=== PATIENT | male | born 1965 | race Caucasian/White ===

== ENCOUNTER 2023-12-30 17:28 | Emergency (ER) | payer OTHER ==
[2023-12-30] MEDS ORDERED: ONDANSETRON 4 MG/2 ML VIAL ONE (18:12)
[2023-12-30] MEDS ORDERED: MORPHINE 4 MG/ML SYR ONE (18:12)
[2023-12-30] MEDS ORDERED: FAMOTIDINE 20 MG/2 ML VIAL IV ONE (18:13)
[2023-12-30 18:41] LABS: PT Prothrombin Time 11.2 SECONDS (9.5-12.5); Protime INR 1.02
[2023-12-30 18:44] LABS: Absolute Eosinophils 0.1 K/uL (0-0.5); Absolute Lymphocytes (CBC) 1.5 K/uL (0.7-4.9); Absolute Monocytes 0.4 K/uL (0.1-1.3); Basophils % 0.7 % (0-1.3); Hematocrit 46.3 % (39.6-49.0); Hemoglobin 15.3 g/dL (13.6-17.9); Lymphocytes % 21.3 % (15.3-44.8); MCH 29.1 pg (27.0-35.0); MCHC 32.9 g/dL (32.0-36.0); MCV 88.5 fL (80-100); MPV 7.3 fL (7.6-11.3); Monocytes % 5.4 % (3.3-12.3); Neutrophils % 71.6 % (41.7-73.7); Nucleated Red Blood Cells % 0.1 % (0-0); Platelets 249 thou/uL (152-406); RBC Red Blood Cell Count 5.24 M/uL (4.33-5.43); Red Cell Distribution Width 16.2 % (12.1-15.2)
[2023-12-30 18:56] LABS: Albumin 3.1 g/dL (3.4-5.0); Albumin/Globulin Ratio 0.8 (1.1-1.8); Alkaline Phosphatase 60 U/L (45-117); Anion Gap 7.9 mEq/L (5.0-15.0); BUN Blood Urea Nitrogen 12 mg/dL (7-18); Bicarbonate 28 mEq/L (21-32); Bilirubin Total 0.4 mg/dL (0.2-1.0); Globulin 3.7 g/dL (2.3-3.5); Glomerular Filtration Rate 71 ml/min (=/>90); Glucose Level 132 mg/dL (74-106); Lipase 15 U/L (13-75); Magnesium 1.7 mg/dL (1.6-2.4); Potassium 3.9 mEq/L (3.5-5.1); Protein, Total 6.8 g/dL (6.4-8.2); Sodium Level 137 mEq/L (136-145); Troponin High Sensitivity 11.8 pg/mL (<58.9)
[2023-12-30 19:07] LABS: AST/SGOT < 10 U/L (15-37)
[2023-12-30 19:08] LABS: ALT/SGPT < 14 U/L (16-61); Bilirubin Direct < 0.2 mg/dL (0-0.2); Bilirubin Indirect, Calculated 0.2 mg/dL (0.2-0.8)
--- NOTE | 2023-12-30 19:36 | RAD REPORT ---
EXAM DESCRIPTION: RADChest Single View12/30/2023 6:20 pm CLINICAL HISTORY: vomiting COMPARISON: Abdomen Pelvis W Contrast dated 12/30/2023 TECHNIQUE: Portable AP view of the chest. FINDINGS: The lungs are clear apart from left basilar scarring/postoperative changes. Elevation of t he left hemidiaphragm is noted. No pneumothorax or effusion. The cardiomediastinal contours are unre markable, with sequelae of CABG noted. IMPRESSION: No acute cardiopulmonary process.
--- NOTE | 2023-12-30 20:09 | RAD REPORT ---
EXAM DESCRIPTION: CT - Abdomen Pelvis W Contrast - 12/30/2023 7:21 pm CLINICAL HISTORY: ABD PAIN COMPARISON: No comparisons TECHNIQUE: Thin cut axial CT imaging of the abdomen and pelvis was performed following intravenous a dministration of 100 mL Isovue 300. Multiplanar reformats were generated and reviewed. All CT scans are performed using dose optimization technique as appropriate and may include automated exposure control or mA/KV adjustment according to patient size. FINDINGS: No suspicious findings in the lung bases apart from left platelike atelectasis or scarring . Epicardial wires. The liver, spleen, adrenal and pancreas show no suspicious findings. Gallbladder and biliary tree are also without suspicious finding. Symmetric renal function is seen with no hydronephrosis or suspicious renal mass. No dilated bowel loops or bowel wall thickening. No free air, free fluid or inflammatory stranding. N o hernia, mass or bulky lymphadenopathy. The urinary bladder is without significant finding. Mild pro statomegaly. No suspicious bony findings. IMPRESSION: No acute intra-abdominal process. Incidental findings as above.
--- NOTE | 2023-12-30 21:33 | ER ---
Nurse's Notes [facility] Name: Roverto Estrada Age: 58 yrs Sex: Male : 1965 Arrival Date: 12/30/2023 Time: 17:28 Bed 14 Private MD: Diagnosis: Abdominal pain, unspecified;Nausea with vomiting, unspecified Presentation: 12/29 17:35 Chief complaint: Patient states: vomiting and abdominal pain x1 week. Coronavirus as6 screen: At this time, the client does not indicate any symptoms associated with coronavirus-19. Ebola Screen: No symptoms or risks identified at this time. Initial Sepsis Screen: Does the patient meet any 2 criteria? No. Patient's initial sepsis screen is negative. Does the patient have a suspected source of infection? No. Patient's initial sepsis screen is negative. Risk Assessment: Do you want to hurt yourself or someone else? Patient reports no desire to harm self or others. Onset of symptoms was December 23, 2023. 17:35 Acuity: NAKIA 3 as6 17:35 Method Of Arrival: Wheelchair as6 Triage Assessment: 17:36 General: Appears in no apparent distress. Behavior is calm, cooperative. Pain: as6 Complains of pain in abdomen. GI: Reports nausea, vomiting. Historical: - Allergies: 17:34 No Known Allergies; as6 - PMHx: 17:34 Diabetes mellitus; as6 - PSHx: 17:34 left AKA; hand; Stented artery; as6 - Immunization history:: Adult Immunizations up to date. - Infectious Disease History:: Denies. - Social history:: Smoking status: Patient reports the use of cigarette tobacco products, smokes one pack cigarettes per day. Screenin:38 [facility] ED Fall Risk Assessment (Adult) History of falling in the last 3 months, nj1 including since admission No falls in past 3 months (0 pts) Confusion or Disorientation No (0 pts) Intoxicated or Sedated No (0 pts) Impaired Gait Yes (1 pt) Mobility Assist Device Used Yes (1 pt) Altered Elimination No (0 pt) Score/Fall Risk Level 0 - 2 = Low Risk Oriented to surroundings, Maintained a safe environment, Hourly rounding (assess needs \T\ fall precautionary measures) done. Abuse screen: Denies threats or abuse. Denies injuries from another. Nutritional screening: No deficits noted. Tuberculosis screening: No symptoms or risk factors identified. Assessment: 18:20 General: Appears in no apparent distress. comfortable, Behavior is calm, cooperative, nj1 appropriate for age. 18:20 Pain: Complains of pain in abdomen Pain currently is 8 out of 10 on a pain scale. nj1 Neuro: Level of Consciousness is awake, alert, obeys commands, Oriented to person, place, time, situation. Cardiovascular: Patient's skin is warm and dry. Respiratory: Airway is patent Respiratory effort is even, unlabored. GI: Reports upper abdominal pain, nausea, vomiting. 19:18 General: Appears comfortable, Behavior is calm, cooperative, appropriate for age. Pain: ha1 Complains of pain in abdomen Pain currently is 6 out of 10 on a pain scale. Quality of pain is described as aching, Pain began over a week. Neuro: Level of Consciousness is awake, alert, obeys commands, Oriented to person, place, time, situation. Cardiovascular: Capillary refill < 3 seconds Patient's skin is warm and dry. Rhythm is sinus rhythm. Respiratory: Airway is patent Respiratory effort is even, unlabored, Respiratory pattern is regular, symmetrical. GI: Reports lower abdominal pain, upper abdominal pain, diarrhea, nausea, vomiting. Derm: Skin is pink, warm \T\ dry. Musculoskeletal: Amputation of left leg. 20:20 Reassessment: Patient and/or family updated on plan of care and expected duration. Pain ha1 level reassessed. Patient is alert, oriented x 3, equal unlabored respirations, skin warm/dry/pink. Patient states symptoms have improved. 21:20 Reassessment: Patient and/or family updated on plan of care and expected duration. Pain ha1 level reassessed. Patient is alert, oriented x 3, equal unlabored respirations, skin warm/dry/pink. Vital Signs: 17:33 BP 140 / 83; Pulse 88; Resp 18 S; Temp 97.8(TE); Pulse Ox 100% on R/A; Weight 72.57 kg as6 (R); Height 5 ft. 8 in. (R); Pain 8/10; 18:22 BP 153 / 87; Pulse 83; Resp 18; Pulse Ox 99% on R/A; Pain 8/10; nj1 19:25 BP 153 / 87; Pulse 83; Resp 16; Pulse Ox 99% on R/A; ha1 20:20 BP 147 / 83; Pulse 81; Resp 17 S; Pulse Ox 96% on R/A; ha1 21:20 BP 150 / 88; Pulse 82; Resp 17 S; Pulse Ox 96% on R/A; ha1 17:33 Body Mass Index 24.33 (72.57 kg, 172.72 cm) as6 17:33 Pain Scale: Adult as6 18:22 Pain Scale: Adult il1 ED Course: 17:31 Patient arrived in ED. im 17:35 Arm band placed on. as6 17:36 Triage completed. as6 17:38 Elliott Moulton PA is PHCP. cp 17:38 Gene Saenz DO is Attending Physician. cp 18:00 Ana Bruno, MARCIO is Primary Nurse. nj1 18:11 Radiology exam delayed due to IV insertion attempt and/or patient not having nj appropriate IV at this time. 18:11 Radiology exam delayed due to lab results not completed at this time. (BUN/Creatinine). nj 18:20 Inserted saline lock: 20 gauge in right antecubital area, using aseptic technique. nj1 Blood collected. 18:22 XRAY Chest (1 view) In Process Unspecified. EDMS 18:39 Patient has correct armband on for positive identification. Bed in low position. Call nj light in reach. Provided Education on: call light, fall precautions. Door closed. Lights dimmed. 19:00 Report given to Kristi BUCKLEY. nj1 19:22 CT Abd/Pelvis - IV Contrast Only In Process Unspecified. EDMS 19:52 Primary Nurse role handed off by Ana Bruno RN 1 19:52 Kristi Dolan RN is Primary Nurse. ha1 21:57 No provider procedures requiring assistance completed. IV discontinued, intact, ha1 bleeding controlled, No redness/swelling at site. Pressure dressing applied. Administered Medications: 18:20 Drug: Ondansetron IVP 4 mg IVP once; over 2 minutes Route: IVP; Site: right antecubital;nj1 19:00 Follow up: Response: No adverse reaction; Marked relief of symptoms ha1 18:22 Drug: Famotidine IVP 20 mg IVP once; dilute with 10 mL 0.9% NaCl; give over 2 minutes nj1 Route: IVP; Site: right antecubital; 19:00 Follow up: Response: No adverse reaction; Marked relief of symptoms ha1 18:24 Drug: morphine IVP or IV 4 mg IVP once over 4 mins Route: IVP; Infused Over: 4 mins; nj1 Site: right antecubital; 19:01 Follow up: Response: No adverse reaction; Pain is decreased; RASS: Alert and Calm (0) ha1 Medication: 19:22 VIS not applicable for this client. ha1 Outcome: 21:33 Discharge ordered by . cp 21:59 Discharged to home via wheelchair, ha1 21:59 Condition: stable 21:59 Discharge instructions given to patient, Instructed on discharge instructions, follow up and referral plans. medication usage, Demonstrated understanding of instructions, follow-up care, medications, Prescriptions given X 2, 21:59 Patient left the ED. ha1 Signatures: Dispatcher [employer] EDMS Elliott Moulton PA PA cp Jordan, Nathan nj Slawson, Ashby, RN RN as6 Kristi Dolan RN RN 1 Ana Bruno RN RN nj1 Lanny Monroe Corrections: (The following items were deleted from the chart) 19:25 19:00 Response: No adverse reaction; Pain is decreased; RASS: Alert and Calm (0) ha1 ha1
--- NOTE | 2023-12-30 21:33 | EDPHYS ---
Physician Documentation [facility] Name: Roverto Estrada Age: 58 yrs Sex: Male : 1965 Arrival Date: 12/30/2023 Time: 17:28 Bed 14 Private MD: ED Physician Gene Saenz HPI: 12/29 18:00 This 58 yrs old Male presents to ER via Wheelchair with complaints of Vomiting. cp 18:00 The patient presents to the emergency department with vomiting, that is intermittent, cp described as bilious, abdominal pain, and does not radiate. Onset: The symptoms/episode began/occurred 1 week(s) ago. Possible causes: unknown. Associated signs and symptoms: Pertinent positives: anorexia, nausea, vomiting, Pertinent negatives: diarrhea, fever. Severity of symptoms: in the emergency department the symptoms are unchanged despite home interventions. Historical: - Allergies: 17:34 No Known Allergies; as6 - PMHx: 17:34 Diabetes mellitus; as6 - PSHx: 17:34 left AKA; hand; Stented artery; as6 - Immunization history:: Adult Immunizations up to date. - Infectious Disease History:: Denies. - Social history:: Smoking status: Patient reports the use of cigarette tobacco products, smokes one pack cigarettes per day. ROS: 18:05 Constitutional: Positive for poor PO intake, Negative for fever, cp 18:05 Respiratory: Negative for cough, shortness of breath, wheezing, cp 18:05 Abdomen/GI: Positive for abdominal pain, vomiting, anorexia, Negative for diarrhea, constipation, hematemesis, black/tarry stool, rectal bleeding, 18:05 Eyes: Negative for injury, pain, redness, and discharge, cp 18:05 Cardiovascular: Negative for chest pain, palpitations, 18:05 Neuro: Negative for altered mental status, dizziness, headache, weakness, 18:05 All other systems are negative, cp Exam: 18:10 Constitutional: The patient appears in no acute distress, alert, awake, cp non-diaphoretic, non-toxic, well developed, well nourished, 18:10 Head/Face: Normocephalic, atraumatic. cp 18:10 Eyes: Periorbital structures: appear normal, Conjunctiva: normal, no exudate, no injection, Sclera: no appreciated abnormality, Lids and lashes: appear normal, bilaterally, 18:10 ENT: External ear(s): are unremarkable, Nose: is normal, Mouth: Lips: moist, Oral mucosa: pink and intact, moist, Posterior pharynx: is normal, airway is patent, no erythema, no exudate, 18:10 Neck: ROM/movement: is normal, is supple, without pain, no range of motions limitations, 18:10 Chest/axilla: Inspection: normal, 18:10 Cardiovascular: Rate: normal, Rhythm: regular, 18:10 Respiratory: the patient does not display signs of respiratory distress, Respirations: normal, no use of accessory muscles, no retractions, labored breathing, is not present, Breath sounds: are clear throughout, no decreased breath sounds, no stridor, no wheezing, 18:10 Abdomen/GI: Inspection: abdomen appears normal, Bowel sounds: active, all quadrants, Palpation: soft, in all quadrants, mild abdominal tenderness, mid abdomen bilaterally, rebound tenderness, is not appreciated, involuntary guarding, is not appreciated, 18:10 Back: pain, is absent, ROM is normal, 18:10 Musculoskeletal/extremity: Extremities: noted in the left leg: above the knee amputation, 18:10 Neuro: Orientation: to person, place \T\ time. Mentation: is normal, Motor: moves all fours, no focal deficits, Sensation: is normal, 19:15 ECG was reviewed by the Attending Physician. cp Vital Signs: 17:33 BP 140 / 83; Pulse 88; Resp 18 S; Temp 97.8(TE); Pulse Ox 100% on R/A; Weight 72.57 kg as6 (R); Height 5 ft. 8 in. (R); Pain 8/10; 18:22 BP 153 / 87; Pulse 83; Resp 18; Pulse Ox 99% on R/A; Pain 8/10; nj1 19:25 BP 153 / 87; Pulse 83; Resp 16; Pulse Ox 99% on R/A; ha1 20:20 BP 147 / 83; Pulse 81; Resp 17 S; Pulse Ox 96% on R/A; ha1 21:20 BP 150 / 88; Pulse 82; Resp 17 S; Pulse Ox 96% on R/A; ha1 17:33 Body Mass Index 24.33 (72.57 kg, 172.72 cm) as6 17:33 Pain Scale: Adult as6 18:22 Pain Scale: Adult nj1 MDM: 17:39 Patient medically screened. 18:00 Differential diagnosis: gastritis, cholecystitis, pancreatitis, appendicitis, cp diverticulitis, viral gastroenteritis, gastroenteritis. 21:32 Data reviewed: vital signs, nurses notes, lab test result(s), EKG, radiologic studies, cp CT scan, and as a result, I will discharge patient. 21:32 I considered the following discharge prescriptions or medication management in the emergency department Medications were administered in the Emergency Department. See MAR. Care significantly affected by the following chronic conditions: Diabetes. Counseling: I had a detailed discussion with the patient and/or guardian regarding the historical points, exam findings, and any diagnostic results supporting the discharge/admit diagnosis, lab results, radiology results, to return to the emergency department if symptoms worsen or persist or if there are any questions or concerns that arise at home. Special discussion: Based on the patient's Hx, exam, and Dx evaluation, there is no indication for emergent surgery or inpatient Tx. It is understood by the patient/guardian that if the Sx's persist or worsen they need to return immediately for re-evaluation. 12/29 17:49 Order name: Basic Metabolic Panel; Complete Time: 19:12 /12 19:12 Interpretation: Normal except: GLUC 132; GFR 71. 12/29 17:49 Order name: CBC with Diff; Complete Time: 19:12 /12 19:12 Interpretation: Normal except: RDW 16.2; MPV 7.3. / 17:49 Order name: LFT's; Complete Time: 19:12 12 17:49 Order name: Magnesium; Complete Time: 19:12 cp / 17:49 Order name: PT-INR; Complete Time: 19:12 cp /12 17:49 Order name: Troponin HS; Complete Time: 19:12 / 17:49 Order name: Lipase; Complete Time: 19:12 /12 17:49 Order name: XRAY Chest (1 view); Complete Time: 20:35 12/29 18:10 Order name: CT Abd/Pelvis - IV Contrast Only; Complete Time: 20:35 12 20:36 Interpretation: Report reviewed. 12/29 17:49 Order name: Cardiac monitoring; Complete Time: 19:18 cp 12/29 17:49 Order name: EKG - Nurse/Tech; Complete Time: 19:18 cp 12/29 17:49 Order name: IV Saline Lock; Complete Time: 18:36 cp 12/29 17:49 Order name: Labs collected and sent; Complete Time: 18:36 cp 12/29 17:49 Order name: O2 Per Protocol; Complete Time: 18:36 cp 12/29 17:49 Order name: O2 Sat Monitoring; Complete Time: 18:36 cp 12/29 20:37 Order name: PO challenge; Complete Time: 21:02 cp EC:15 Rate is 83 beats/min. Rhythm is regular. NM interval is normal. QRS interval is normal. cp QT interval is normal. T waves are Inverted in lead aVR. Interpreted by me. Reviewed by me. Administered Medications: 18:20 Drug: Ondansetron IVP 4 mg IVP once; over 2 minutes Route: IVP; Site: right antecubital;nj1 19:00 Follow up: Response: No adverse reaction; Marked relief of symptoms ha1 18:22 Drug: Famotidine IVP 20 mg IVP once; dilute with 10 mL 0.9% NaCl; give over 2 minutes nj1 Route: IVP; Site: right antecubital; 19:00 Follow up: Response: No adverse reaction; Marked relief of symptoms ha1 18:24 Drug: morphine IVP or IV 4 mg IVP once over 4 mins Route: IVP; Infused Over: 4 mins; nj1 Site: right antecubital; 19:01 Follow up: Response: No adverse reaction; Pain is decreased; RASS: Alert and Calm (0) ha1 Disposition: 22:33 I was immediately available on-site in the Emergency Department for consultation in the ms3 care of the patient. . Disposition Summary: 12/30/23 21:33 Discharge Ordered Notes: Location: Home cp Problem: new cp Symptoms: have improved cp Condition: Stable cp Diagnosis - Abdominal pain, unspecified cp - Nausea with vomiting, unspecified cp Followup: cp - With: Private Physician - When: 2 - 3 days - Reason: Recheck today's complaints Discharge Instructions: - Discharge Summary Sheet cp - Abdominal Pain, Adult cp - Nausea and Vomiting, Adult cp Forms: - Medication Reconciliation Form cp - Antibiotic Education cp - Prescription Opioid Use cp - Patient Portal Instructions cp - Leadership Thank You Letter cp Prescriptions: - Protonix 40 mg Oral Tablet - take 1 tablet ORAL route once daily; 30 tablet; Refills: 0, Product Selection cp Permitted - Zofran 4 mg Oral Tablet - take 1 tablet ORAL route every 12 hours As needed; 20 tablet; Refills: 0, cp Product Selection Permitted Signatures: Dispatcher [employer] EDMS Elliott Moulton PA PA cp Sims, Marcus, DO DO ms3 Baldemar Saavedra, RN RN as6 Ana Bruno RN RN nj1 Kristi Dolan RN ha1 Corrections: (The following items were deleted from the chart) 17:50 17:50 BASIC METABOLIC PANEL+C.LAB.BRZ ordered. EDMS EDMS 17:50 17:50 CBC+H.LAB.BRZ ordered. EDMS EDMS 17:50 17:50 HEPATIC FUNCTION+C.LAB.BRZ ordered. EDMS EDMS 17:50 17:50 MAGNESIUM+C.LAB.BRZ ordered. EDMS EDMS 17:50 17:50 PROTIME (+INR)+COAG.LAB.BRZ ordered. EDMS EDMS 17:50 17:50 Troponin High Sensitivity+C.LAB.BRZ ordered. EDMS EDMS 17:50 17:50 LIPASE+C.LAB.BRZ ordered. EDMS EDMS 17:50 17:50 Chest Single View+RAD.RAD.BRZ ordered. EDMS EDMS 12/30 01:54 01:52 Rate is 83 beats/min. Rhythm is regular. NM interval is normal. QRS interval is cp normal. QT interval is normal. T waves are Inverted in lead aVR. Interpreted by me. Reviewed by me. cp
[2023-12-30 22:09] VITALS: TEMP 97.8; O2SAT 96
[2023-12-30 22:31] VITALS: BP 150/88
--- NOTE | 2024-01-04 15:10 | EKG ---
Test Date: 2023-12-30 Test Time: 19:09:38 Offset Label Rewinder: ANGELA MEASUREMENT RESULTS: Intervals: Rate: 83 CA: 146 QRSD: 94 QT: 396 QTc: 465 [place]: P: 63 CA: 146 QRS: -37 T: 52 INTERPRETIVE STATEMENTS: Normal sinus rhythm Possible Left atrial enlargement Left axis deviation Septal infarct, age undetermined Inferior infarct, age undetermined Abnormal ECG No previous ECG available for comparison Electronically Signed On 01-04-24 14:56:51 CDT by Kwaku Burton
== END 2023-12-30 21:59 | disposition home or self-care (01) ==
LOC: ER 17:28
DX: R11.2 Nausea with vomiting, unspecified (principal); R10.9 Unspecified abdominal pain
CPT/HCPCS: 93005; 85025; 80048; 36415; 83735; 85610; 80076; 84484; 83690; 74177; 71045; 96375; 96374; 99284; Q9967; J2405